=== PATIENT | female | born 1980 ===

== ENCOUNTER 2021-01-04 03:12 | Emergency (ER) | payer OTHER, SELFPAY ==
[2021-01-04 04:19] LABS: Absolute Lymphocytes (CBC) 4.1 K/uL (0.7-4.9); Basophils % 0.7 % (0-1.3); Hematocrit 41.7 % (36.0-45.0); MPV 7.8 fL (7.6-11.3); Protime INR 1.04
[2021-01-04 04:34] LABS: ALT/SGPT 39 U/L (12-78); AST/SGOT 28 U/L (15-37); Alkaline Phosphatase 116 U/L (45-117); BUN Blood Urea Nitrogen 11 mg/dL (7-18); Bicarbonate 24 mmol/L (21-32); Bilirubin Direct < 0.1 mg/dL (0-0.2); Bilirubin Total 0.1 mg/dL (0.2-1.0); Glucose Level 83 mg/dL (74-106); Potassium 3.7 mmol/L (3.5-5.1); Protein, Total 8.3 g/dL (6.4-8.2); Sodium Level 142 mmol/L (136-145)
[2021-01-04 04:35] LABS: Urine Blood 2+ (NEG); Urine Glucose NEGATIVE (NEG); Urine Protein 1+ (NEG); Urine pH 5.5 (5.0-7.0)
[2021-01-04 04:36] LABS: Barbiturates NEGATIVE (NEGATIVE); Benzodiazepines NEGATIVE (NEGATIVE); Cocaine NEGATIVE (NEGATIVE); METHAMPHETAM POSITIVE (NEGATIVE); Methadone NEGATIVE (NEGATIVE); Opiates NEGATIVE (NEGATIVE); Phencyclidine NEGATIVE (NEGATIVE); THC Cannibis NEGATIVE (NEGATIVE)
[2021-01-04] MEDS ORDERED: NICOTINE 21 MG/PAT TD ONE (09:26)
[2021-01-04] MEDS ORDERED: LORAZEPAM 1 MG TABLET ONE ×2 (10:44→18:18)
--- NOTE | 2021-01-04 19:16 | EDPHYS ---
Physician Documentation [facility] Name: Stephanie Perez Age: 40 yrs Sex: Female : 1980 Arrival Date: 01/04/2021 Time: 03:15 Bed 6 Private MD: ED Physician Yunior Meek HPI: 01/04 03:44 This 40 yrs old Female presents to ER via Other with complaints of Depression. Suicidal mh7 Ideation. 03:44 The patient presents to the emergency department with depression, a history of a mh7 suicide gesture, where the patient cut wrists. Onset: The symptoms/episode began/occurred today. Past psychiatric history: Prior diagnosis: no previous psychiatric diagnosis known, Psychiatric medications include: none, Primary psychiatric physician: the patient does not have a primary psychiatric physician, the patient has not had a prior suicide gesture, the patient does not have a previous inpatient psychiatric history, the patient's last psychiatric treatment was none. Associated signs and symptoms: Pertinent positives; depression, Alcohol Intoxication, Pertinent negatives: abdominal pain, anxiety, chest pain, chills, delusions, fever, hallucinations, headache, homicidal ideation, nausea, night sweats, palpitations, paranoia, shortness of breath, substance abuse, tremor, vomiting. Severity of symptoms: At their worst the symptoms were moderate today, in the emergency department the symptoms are unchanged. 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 - Social history:: Smoking status: Patient reports the use of cigarette tobacco products, smokes one-half pack cigarettes per day. ROS: 03:44 Constitutional: Negative for fever, chills, and weight loss, Eyes: Negative for injury, mh7 pain, redness, and discharge, ENT: Negative for injury, pain, and discharge, Neck: Negative for injury, pain, and swelling, Cardiovascular: Negative for chest pain, palpitations, and edema, Respiratory: Negative for shortness of breath, cough, wheezing, and pleuritic chest pain, Abdomen/GI: Negative for abdominal pain, nausea, vomiting, diarrhea, and constipation, Back: Negative for injury and pain, : Negative for injury, bleeding, discharge, and swelling, Neuro: Negative for headache, weakness, numbness, tingling, and seizure, Allergy/Immunology: Negative for hives, rash, and allergies, Endocrine: Negative for neck swelling, polydipsia, polyuria, polyphagia, and marked weight changes, Hematologic/Lymphatic: Negative for swollen nodes, abnormal bleeding, and unusual bruising. Exam: 03:44 Head/Face: Normocephalic, atraumatic. Eyes: Pupils equal round and reactive to light, mh7 extra-ocular motions intact. Lids and lashes normal. Conjunctiva and sclera are non-icteric and not injected. Cornea within normal limits. Periorbital areas with no swelling, redness, or edema. Neck: Trachea midline, no thyromegaly or masses palpated, and no cervical lymphadenopathy. Supple, full range of motion without nuchal rigidity, or vertebral point tenderness. No Meningismus. Chest/axilla: Normal chest wall appearance and motion. Nontender with no deformity. No lesions are appreciated. Cardiovascular: Regular rate and rhythm with a normal S1 and S2. No gallops, murmurs, or rubs. Normal PMI, no JVD. No pulse deficits. Respiratory: Lungs have equal breath sounds bilaterally, clear to auscultation and percussion. No rales, rhonchi or wheezes noted. No increased work of breathing, no retractions or nasal flaring. Abdomen/GI: Soft, non-tender, with normal bowel sounds. No distension or tympany. No guarding or rebound. No evidence of tenderness throughout. Back: No spinal tenderness. No costovertebral tenderness. Full range of motion. 03:44 Neuro: Awake and alert, GCS 15, oriented to person, place, time, and situation. Cranial nerves II-XII grossly intact. Motor strength 5/5 in all extremities. Sensory grossly intact. Cerebellar exam normal. Normal gait. 03:44 Constitutional: The patient appears in no acute distress, alert, awake, anxious, smells of alcohol, ETOH. 03:44 Musculoskeletal/extremity: Extremities: noted in the left wrist: laceration, ROM: intact in all extremities, Circulation is intact in all extremities. Pulses: are normal with no appreciated deficits, Perfusion: the patient is normally perfused throughout, Perfusion: the extremity is normally perfused throughout, Sensation intact. Compartment Syndrome exam of affected extremity: is normal. no pain, no numbness, no tingling, no sensation deficit, no palor, no weak pulses, Joints: All joints appear normal with full range of motion. Weight bearing: able to fully bear weight, without difficulty, Tendon exam: specific tendon testing normal through active and passive range of motion 03:44 Skin: injury, laceration(s), the wound is approximately 3 cm(s), with a depth of 0.25 cm(s), of the left wrist, that can be described as clean, no foreign body, linear, without bleeding. 03:44 Psych: Behavior/mood is cooperative, anxious, depressed, Tearful. Affect is calm, Oriented to person, place, time, Patient having thoughts of suicide. Judgement / Insight is impaired. Memory is normal. Delusions/hallucinations are not present. Vital Signs: 03:22 BP 105 / 74; Pulse 94; Resp 18; Temp 97.7; Pulse Ox 100% ; Weight 89.36 kg; Height 5 rv ft. 4 in. (162.56 cm); 08:41 BP 122 / 78; Pulse 100; Resp 18; Temp 97.6; Pulse Ox 100% on R/A; iw 18:09 BP 117 / 68; Pulse 99; Resp 17; Temp 98.2(O); Pulse Ox 100% on R/A; mh5 01/05 09:35 BP 129 / 79; Pulse 102; Resp 18; Temp 97.; Pulse Ox 97% on R/A; mh5 01/04 03:22 Body Mass Index 33.81 (89.36 kg, 162.56 cm) rv Laceration: 01/04 06:58 Wound Repair of 3cm ( 1.2in ) subcutaneous laceration to left wrist. Distal mh7 neuro/vascular/tendon intact. Skin closed with 1-0 Prolene using sterile strips. Patient tolerated well. MDM: 06:58 Differential diagnosis: depression, Suicidal ideation, Alcohol intoxication, Substance mh7 abuse. Data reviewed: vital signs, nurses notes, EMS record, lab test result(s), CBC, drug level(s), acetaminophen, salicylate, electrolytes, urinalysis, urine drug screen, EKG. Data interpreted: Pulse oximetry: on room air is 100 %. Interpretation: normal. Refusal of service: The patient/guardian displays adequate decision making capability and despite a detailed discussion of alternatives, benefits, risks, and consequences refuses: suture repair of left wrist laceration. 07:32 Transition of care: After a detail discussion of the patient's case, care is mh7 transferred to Ellis Hanks MD. 19:14 Patient medically screened. tw4 01/05 06:56 ED course: The patient continued to be stable in the ED and has not required any kdr further intervention this last evening. 07:43 Patient medically screened. [facility] 01/04 03:34 Order name: Acetaminophen [facility] 01/04 03:34 Order name: Basic Metabolic Panel [facility] 01/04 03:34 Order name: CBC with Diff [facility] 01/04 03:34 Order name: ETOH Level [facility] 01/04 03:34 Order name: Hepatic Function [facility] 01/04 03:34 Order name: PT-INR [facility] 01/04 03:34 Order name: Ptt, Activated [facility] 01/04 03:34 Order name: Salicylate [facility] 01/04 03:34 Order name: Urine Drug Screen [facility] 01/04 03:55 Order name: Urine Dipstick--Ancillary (enter results) [facility] 01/04 03:55 Order name: Urine --Ancillary (enter results) [facility] 01/04 04:20 Order name: Protime (+INR); Complete Time: 04:30 EDMS 01/04 04:20 Order name: PTT, Activated Partial Thromb; Complete Time: 04:30 EDMS 01/04 04:21 Order name: CBC with Automated Diff; Complete Time: 04:30 EDMS 01/04 04:24 Order name: Salicylates Level; Complete Time: 04:30 EDMS 01/04 04:35 Order name: Basic Metabolic Panel; Complete Time: 04:41 EDMS 01/04 04:35 Order name: Liver (Hepatic) Function; Complete Time: 04:41 EDMS 01/04 04:35 Order name: Acetaminophen Level; Complete Time: 04:41 EDMS 01/04 04:35 Order name: Alcohol Serum/Plasma; Complete Time: 04:41 EDMS 01/04 04:36 Order name: Urine Drug Screen; Complete Time: 04:41 EDMS 01/04 04:36 Order name: Urine --Ancillary; Complete Time: 04:41 EDMS 01/04 04:36 Order name: Urine Dipstick-Ancillary; Complete Time: 04:41 [facility] 01/04 07:02 Order name: COVID-19 : Document "Date of Symptom Onset" if Symptomatic. iw 01/04 11:55 Order name: SARS-COV-2 RT PCR; Complete Time: 19:12 MS 01/04 20:14 Order name: CBC with Diff sg 01/04 03:34 Order name: EKG; Complete Time: 03:35 [facility] 01/04 03:34 Order name: EKG - Nurse/Tech; Complete Time: 03:51 [facility] 01/04 03:34 Order name: IV Saline Lock; Complete Time: 03:51 7 01/04 03:34 Order name: Labs collected and sent; Complete Time: 03:51 [facility] 01/04 03:34 Order name: Urine Dipstick-Ancillary (obtain specimen); Complete Time: 03:51 7 01/04 03:34 Order name: Urine Test (obtain specimen); Complete Time: 03:51 7 01/04 07:44 Order name: Diet Finger Food; Complete Time: 07:44 [facility] 01/04 10:07 Order name: Diet Finger Food; Complete Time: 10:07 5 01/04 16:22 Order name: Diet Finger Food; Complete Time: 16:23 5 01/05 08:07 Order name: Diet Finger Food; Complete Time: 08:08 bd Administered Medications: 01/04 09:18 Drug: Nicotine 21 mg/24 hr 1 patches {Note: right arm.} Route: Transdermal; Site: iw affected area; 10:35 Drug: Ativan 1 mg Route: PO; iw 11:00 Follow up: Response: No adverse reaction sv 18:25 Drug: Ativan 1 mg Route: PO; iw 20:00 Follow up: Response: No adverse reaction ea 01/05 13:39 Drug: Ativan 1 mg Route: PO; sv 14:00 Follow up: Response: No adverse reaction sv Disposition: 01/04/21 19:14 Transfer ordered to Psych Facility. Diagnosis are Suicide attempt, Suicidal ideations, Major depressive disorder, recurrent. - Reason for transfer: Higher level of care. - Accepting physician is Dr Schwab. - Condition is Stable. - Problem is an ongoing problem. - Symptoms are unchanged. Signatures: Dispatcher [employer] Josey Hagan RN Yunior Harris MD MD cha Rittger, Kevin, MD MD kdr Williams, Irene, RN RN iw Wadley, Terrence, MD MD tw4 Mumtaz Rowley, Norbert Shah RN, MD MD mh7 Lesly Sanchez RN, ea Corrections: (The following items were deleted from the chart) 01/04 11:07 07:02 CORONAVIRUS ordered. EDMS EDMS 20:20 20:15 CBC with Automated Diff ordered. EDMS EDMS 01/05 17:46 01/04 19:14 01/04/2021 19:14 Transfer ordered to Psych Facility. Diagnosis is Suicide iw attempt; Suicidal ideations; Major depressive disorder, recurrent. Reason for transfer: Higher level of care. Accepting physician is Dr Schwab. Condition is Stable. Problem is an ongoing problem. Symptoms are unchanged. tw4
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
[2021-01-05] MEDS ORDERED: LORAZEPAM 1 MG TABLET ONE (13:53)
[2021-01-05 17:55] VITALS: BP 129/79; TEMP 97; O2SAT 97
== END 2021-01-05 17:46 ==
LOC: ER 03:12
PROC: 0HQEXZZ Repair Left Lower Arm Skin, External Approach (ICD-10-PCS; principal; 2021-01-04)
DX: F33.9 Major depressive disorder, recurrent, unspecified (principal); S61.512A Laceration without foreign body of left wrist, initial encounter; F17.210 Nicotine dependence, cigarettes, uncomplicated; F10.129 Alcohol abuse with intoxication, unspecified; X78.9XXA Intentional self-harm by unspecified sharp object, initial encounter; Y90.5 Blood alcohol level of 100-119 mg/100 ml; Z20.822 Contact with and (suspected) exposure to COVID-19
CPT/HCPCS: 12002; 93005; 85025; 80048; 36415; 80320; 80329 ×2; 81025; 85610; 80076; 80307 ×8; 85730; 81003; 99285; U0003

== ENCOUNTER 2021-06-09 21:51 | Emergency (ER) | payer OTHER ==
--- OUTSIDE RECORDS SUMMARY | 2021-06-09 21:53 | XMS REPORT | Continuity of Care Document ---
:1980 Author Organization [facility] t Address [address] [place] [address] Care Team Providers Name Role Phone Nikko Sarah DO Attending Clinician Naomy Harrison Attending Clinician [facility] Attending Clinician Provider, Urgent Care Attending Clinician Unavailable Doctor Unassigned, Name Attending Clinician Unavailable Payers Payer Name Policy Type Policy Number Effective Date Expiration Date S ource Problems This patient has no known problems. Allergies, Adverse Reactions, Alerts Allergy Allergy Status Severity Reaction(s) Onset Inactive Treating Comm ents Source Name Type Date Date Clinician No Known DA Active U [facility] Allergie 7-15 [place] [facility] 00:00: [address] Medications This patient has no known medications. Procedures This patient has no known procedures. Encounters Start End Encounter Admission Attending Care Care Encounter Source Date/Time Date/Time Type Type Clinicians Facility Department ID 2021-02-18 2021-02-18 Emergency Daisy Sarah [facility] [id number] 11:17:00 20:59:00 Yash Mayes [place] [id number] [place] [id number] [place] [id number] 2020-10-03 2020-10-03 [facility] [id number] 12:09:54 23:59:00 Encounter Eduar Tse [id number] [place] [id number] [place] [id number] 2020-10-03 2020-10-03 Urgent [facility] [id number] 11:19:44 12:21:41 Care [facility] [id number] Care [place] [id number] [place] [id number] [place] [address] 2020-10-03 2020-10-03 Letter Doctor ERNESTO [id number] 00:00:00 00:00:00 (Out) Unassigned, [place] [id number] Shelley [facility] [id number] 2020-10-03 2020-10-03 Telephone [facility] [id number] 00:00:00 00:00:00 [facility] [id number] [place] [id number] [place] [phone] nal 0[address] Results This patient has no known results.
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
[2021-06-10 01:25] VITALS: TEMP 97.9
[2021-06-10 01:27] VITALS: O2SAT 100
[2021-06-10 01:28] VITALS: BP 132/77
--- NOTE | 2021-06-10 07:21 | RAD REPORT ---
EXAM DESCRIPTION: RAD - Humerus Left - 06/10/2021 12:26 am CLINICAL HISTORY: PAIN COMPARISON: No comparisons FINDINGS: No left humerus fracture identified. No radiopaque foreign body. IMPRESSION: No left humerus fracture.
--- NOTE | 2021-06-10 07:22 | RAD REPORT ---
EXAM DESCRIPTION: RAD - Femur Left - 06/10/2021 12:25 am CLINICAL HISTORY: PAIN COMPARISON: No comparisons FINDINGS: No left femur fractures identified. No radiopaque foreign bodies. No radiopaque foreign zulema dies. Visualized portions of the pelvis and tibia/ fibula is unremarkable. IMPRESSION: No left femur fracture.
--- NOTE | 2021-06-10 14:37 | RAD REPORT ---
EXAM DESCRIPTION: CT - Head Brain Wo Cont - 06/10/2021 6:45 am CLINICAL HISTORY: 69 years Female Dizziness;Headache COMPARISON: CT head without contrast dated 08/24/2020 TECHNIQUE: Contiguous axial images of the brain were obtained without the administration of intraven ous contrast.This exam was performed according to our departmental dose-optimization program which in cludes use of Automated Exposure Control, adjustment of the mA and/or kV according to patient size an d/or use of iterative reconstruction technique. DLP: 838 mGy*cm FINDINGS: Brain: Unchanged right frontal postsurgical changes of encephalomalacia. No acute intracra nial hemorrhage. No extra-axial collection. No mass effect or herniation. Unchanged prominence of t he sulci and cisterns. Encephalomalacia and corticated calcification the left frontal lobe. Confluent periventricular and subcortical white matter hypodensity is noted. Ventricles: No hydrocephalus. Globes and orbits: No acute abnormality. Bones: Right frontal craniotomy. No acute osseous finding Paranasal sinuses: Paranasal sinuses are clear. Mastoid air cells: Well pneumatized. Soft tissues: Within normal limits IMPRESSION: No acute intracranial hemorrhage, hydrocephalus or herniation. Right frontal post surgical changes. Underlying encephalomalacia. Cerebral volume loss, chronic small vessel ischemic changes and left frontal encephalomalacia. Consid er MRI brain for further evaluation. Electronically signed by: Arnoldo Hedrick DO 06/09/2021 10:54 PM CDT Due to temporary technical issues with the PACS/Fluency reporting system, reports are being signed by the in house radiologists without review as a courtesy to insure prompt reporting. The interpreting radiologist is fully responsible for the content of the report.
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
== END 2021-06-10 00:39 | disposition home or self-care (01) ==
LOC: ER 21:51
DX: S00.93XA Contusion of unspecified part of head, initial encounter (principal); S30.1XXA Contusion of abdominal wall, initial encounter; S70.12XA Contusion of left thigh, initial encounter; S40.022A Contusion of left upper arm, initial encounter; Y04.2XXA Assault by strike against or bumped into by another person, initial encounter; Y92.89 Other specified places as the place of occurrence of the external cause; F17.210 Nicotine dependence, cigarettes, uncomplicated
CPT/HCPCS: 82565; 70450; 71260; 74177; 73060; 73552; 99284; Q9967